=== PATIENT | male | born 1970 | race American Indian/Alaskan Native ===

== ENCOUNTER 2016-06-11 03:00 | Emergency (ER) | payer MEDICARE ==
[2016-06-11 03:43] LABS: Basophils % (Auto) 0.5 % (0.0-1.8); Eosinophils % (Auto) 0.5 % (0.0-4.3); Hematocrit 40.9 % (35.5-45.6); Hemoglobin 13.9 gm/dl (11.8-15.2); Mean Corpuscular HGB Conc 34 % (32-34); Mean Corpuscular Hemoglobin 32 pg (28-32); Mean Corpuscular Volume 94 fl (84-94); Platelet Count 221 K/mm3 (140-440); Red Blood Count 4.34 M/mm3 (3.65-5.03); Red Cell Distribution Width 12.2 % (13.2-15.2); White Blood Count 3.8 K/mm3 (4.5-11.0)
[2016-06-11 04:02] LABS: Anion Gap 17 mmol/L; Blood Urea Nitrogen 9 mg/dL (9-20); Calcium 9.2 mg/dL (8.4-10.2); Carbon Dioxide 25 mmol/L (22-30); Chloride 98.3 mmol/L (98-107); Glucose 77 mg/dL (75-100); Potassium 4.4 mmol/L (3.6-5.0); Sodium 136 mmol/L (137-145)
--- NOTE | 2016-06-11 07:18 | Emergency Department Report ---
ED Psych HPI - General Chief Complaint: Psych Stated Complaint: SOHAIL EVAL Time Seen by Provider: 06/11/16 07:02 Source: patient Mode of arrival: Ambulatory Limitations: No Limitations - History of Present Illness Initial Comments: 46-year-old male presents to the emergency department complaining of depression and suicidal thoughts. Patient states he's been having these thoughts for a while. He reports he has a history of suicide attempt after he was first diagnosed with HIV in 1990. He states he has not been taking his medication as directed. He has been drinking alcohol and using crack cocaine. He states he is having suicidal thoughts and plans to combine Seroquel with alcohol to kill himself. There are no other complaints. MD Complaint: suicidal ideation, feels depressed -: Gradual Associated Psychiatric Symptoms: depression, suicidal ideation History of same: Yes Quality: constant Improves With: none Worsens With: none Context: recent alcohol abuse, recent drug abuse, not taking psychiatric Associated Symptoms: denies other symptoms Treatments Prior to Arrival: none If Self Harm: admits thoughts of, has plan - Related Data Home Medications Medication Instructions Recorded Confirmed Last Taken QUEtiapine [SEROquel] 200 mg PO HS 12/03/14 12/03/14 12/02/14 Previous Rx's Medication Instructions Recorded Last Taken Type RX: Triamcinolone 0.1% [Kenalog 1 applic TP TID PRN #1 tube 12/03/14 Unknown Rx 0.1% CREAM] RX: Permethrin 5% [Acticin 5% 1 applicatio TP ONCE #1 tube 12/23/14 Unknown Rx CREAM] Acetaminophen/Codeine [Tylenol #3] 1 tab PO Q6H PRN #15 tab 01/06/15 Unknown Rx RX: Clindamycin [Clindamycin CAP] 300 mg PO Q8H #28 cap 01/06/15 Unknown Rx Allergies Allergy/AdvReac Type Severity Reaction Status Date / Time No Known Allergies Allergy Verified 12/18/14 12:31 ED Review of Systems ROS: Stated complaint: SOHAIL EVAL Other details as noted in HPI Comment: All other systems reviewed and negative Psychiatric: depression, suicidal thoughts ED Past Medical Hx - Past Medical History Previous Medical History?: Yes Hx Psychiatric Treatment: Yes (DEPRESSION; MOOD DISORDER) Hx HIV: Yes (since 1990; refuses treatment) Additional medical history: Neuropathy right leg from [facility] in 1991 - Surgical History Past Surgical History?: Yes Additional Surgical History: Right hand, Right leg, Left forearm - Family History Family history: no significant - Social History Smoking Status: Current Every Day Smoker Substance Use Type: Alcohol, Cocaine, Marijuana - Medications Home Medications: Home Medications Medication Instructions Recorded Confirmed Last Taken Type QUEtiapine [SEROquel] 200 mg PO HS 12/03/14 12/03/14 12/02/14 History RX: Triamcinolone 0.1% [Kenalog 1 applic TP TID PRN #1 tube 12/03/14 Unknown Rx 0.1% CREAM] RX: Permethrin 5% [Acticin 5% 1 applicatio TP ONCE #1 tube 12/23/14 Unknown Rx CREAM] Acetaminophen/Codeine [Tylenol #3] 1 tab PO Q6H PRN #15 tab 01/06/15 Unknown Rx RX: Clindamycin [Clindamycin CAP] 300 mg PO Q8H #28 cap 01/06/15 Unknown Rx ED Physical Exam - General Limitations: No Limitations General appearance: alert, in no apparent distress - Head Head exam: Present: atraumatic, normocephalic - Eye Eye exam: Present: normal appearance, PERRL, EOMI - ENT ENT exam: Present: normal exam, normal orophraynx, mucous membranes moist - Neck Neck exam: Present: normal inspection, full ROM. Absent: tenderness - Respiratory Respiratory exam: Present: normal lung sounds bilaterally. Absent: respiratory distress - Cardiovascular Cardiovascular Exam: Present: regular rate, normal rhythm, normal heart sounds - GI/Abdominal GI/Abdominal exam: Present: soft, normal bowel sounds. Absent: distended, tenderness - Extremities Exam Extremities exam: Present: normal inspection, full ROM. Absent: tenderness - Back Exam Back exam: Present: normal inspection, full ROM. Absent: tenderness - Neurological Exam Neurological exam: Present: alert, oriented X3. Absent: motor sensory deficit - Psychiatric Psychiatric exam: Present: depressed, flat affect, suicidal ideation - Skin Skin exam: Present: warm, dry, intact ED Course Vital Signs 06/11/16 06/11/16 06/11/16 03:09 04:06 07:20 Temperature 97.4 F L 97 F L 98.2 F Pulse Rate 67 69 74 Respiratory 18 18 18 Rate Blood Pressure 106/74 Blood Pressure 113/74 117/78 [Right] O2 Sat by Pulse 96 97 96 Oximetry 04/12/17 07:22 Temperature 98 F Pulse Rate 87 Respiratory 18 Rate Blood Pressure Blood Pressure 124/76 [Right] O2 Sat by Pulse 96 Oximetry - Reevaluation(s) Reevaluation #1: 06/11/16 10:42 Form 1013 has been signed and placed on the patient's chart. Patient has been medically cleared and is awaiting mental health evaluation for placement. ED Medical Decision Making - Lab Data Result diagrams: 06/11/16 03:32 06/11/16 03:32 - Differential Diagnosis depression, suicidal ideation, polysubstance abuse Critical care attestation.: If time is entered above; I have spent that time in minutes in the direct care of this critically ill patient, excluding procedure time. ED Disposition Clinical Impression: Suicidal ideation Major depression Qualifiers: Major depression recurrence: recurrent Active/Remission status: currently active Major depression episode severity: severe Psychotic features: without psychotic features Qualified Code(s): F33.2 - Major depressive disorder, recurrent severe without psychotic features Disposition: DC/TX PSY HOSP/PSY UNIT Is pt being admited?: No Condition: Stable Referrals: PRIMARY CARE, [Primary Care Provider] - 3-5 Days Time of Disposition: 10:43
[2016-06-11 07:36] LABS: Alanine Aminotransferase 26 units/L (7-56); Albumin 4.5 g/dL (3.9-5); Albumin/Globulin Ratio 0.9 %; Alkaline Phosphatase 101 units/L (35-129); Bilirubin,Total 0.4 mg/dL (0.1-1.2); Total Protein 9.3 g/dL (6.3-8.2)
[2016-06-11 07:37] LABS: Bilirubin,Direct < 0.2 mg/dL (0-0.2)
[2016-06-11 07:52] LABS: Urine Drugs of Abuse Note Disclamer
[2016-06-11 08:12] LABS: Bacteria,Urine 1+ /HPF (Negative); Bilirubin,Urine NEG (Negative); Blood,Urine NEG (Negative); Ketones,Urine NEG (Negative); Leukocyte Esterase,Urine NEG (Negative); Mucus,Urine FEW /HPF; Nitrite,Urine NEG (Negative); Protein,Urine <15 mg/dL mg/dL (Negative); Urobilinogen,Urine < 2.0 mg/dL (<2.0)
[2016-06-11 18:50] VITALS: BP 121/79
--- NOTE | 2016-06-11 18:52 | Consultation ---
History of Present Illness - Reason for Consult Consult date: 06/11/16 Reason for consult: psychiatric evaluation - Chief Complaint Chief complaint: "I'm tired of going through these emotional battles" Mr. Marsh is a 46 year old black male who presented to the ER for help with SI and hopeless as well as daily cocaine use and alcohol use. Last use was one day ago. Current symptoms include isolation, hopelessness, lack of motivation to care for himself. AH telling him he is worthless, paranoia people will harm him , trouble sleeping and eating. One year ago, he stopped taking HIV medications and medication for depression (cymbalta). Reports being previously diagnosed with bipolar disorder and was on Seroquel. He overdosed on it twice. He states he wants to "clean myself up." He is agreeable to treatment and wants to know the status of his HIV. He believes he has AIDS. Medications and Allergies Allergies Allergy/AdvReac Type Severity Reaction Status Date / Time No Known Allergies Allergy Verified 12/18/14 12:31 Past psychiatric history - Past Medical History Past Medical History: HIV/AIDS, other (thrush, neuropathy) - past Psychiatric treatment and history Psych: Addictions, Bipolar, Depression psychiatric treatment history: [facility] 2014-stayed abstinent for 18 months SAs: Overdose on SEroquel 300m in 2013 Overdose on Seroquel 200m in 2011 Stabbed self in chest several times in 1990 after found out he had HIV: required resuscitation family history father was alcoholic - Social History Social history: alcohol abuse, IV drug use (denies), other (staying in a home where there is drug use. He has gone to senior living twice for possession of cocaine) Mental Status Exam - Vital signs Last Vital Signs Temp 98.1 F 06/11/16 18:50 Pulse 76 06/11/16 18:50 Resp 18 06/11/16 18:50 BP 121/79 06/11/16 18:50 Pulse Ox 97 06/11/16 18:50 - Exam Narrative exam: suicidal ideation hopelessness, severe, constant anhedonia amotivation anergia AH telling him he is worthless Paranoia people are going to harm him Isolation Trouble going to sleep Decrease in appetite Orientation: time, place, person Affect: depressed Mood: congruent with affect Thought content: paranoia Thought Process: Intact Perceptions: auditory, hallucinations Speech: normal rate and pattern Concentration: focused Motor activity: other (uses walker. reports neuropathy causes difficulty ambulating) Level of consciousness: alert Memory: Intact Sleep Symptoms: Difficulty Falling Asleep Appetite: decreased Interaction: cooperative, pleasant Results Result Diagrams: 06/11/16 03:32 06/11/16 03:32 Abnormal lab results 06/11/16 06/11/16 06/11/16 Range/Units 03:32 03:32 03:32 WBC 3.8 L (4.5-11.0) K/mm3 RDW 12.2 L (13.2-15.2) % [place]rentiss % (Auto) 9.0 H (0.0-7.3) % Lymph # 0.9 L (1.2-5.4) K/mm3 Sodium 136 L (137-145) mmol/L Total Creatine Kinase (55-170) units/L Total Protein (6.3-8.2) g/dL Salicylates (2.8-20.0) mg/dL Plasma/Serum Alcohol 0.13 H (0-0.07) gm% 06/11/16 06/11/16 06/11/16 Range/Units 05:03 05:03 05:04 WBC (4.5-11.0) K/mm3 RDW (13.2-15.2) % Prentiss % (Auto) (0.0-7.3) % Lymph # (1.2-5.4) K/mm3 Sodium (137-145) mmol/L Total Creatine Kinase 356 H (55-170) units/L Total Protein 9.3 H (6.3-8.2) g/dL Salicylates < 0.3 L (2.8-20.0) mg/dL Plasma/Serum Alcohol (0-0.07) gm% All other labs normal. Assessment and Plan Assessment and plan: Impression: 46 year old black male with significant psychosocial stressors and chronic health condition which have contributed to a worsening of depressive symptoms. He currently has suicidal ideation and wants help for depression and substance abuse. Bipolar disorder (describes history of manic episodes), currently depressed, severe, with psychotic features Cocaine use disorder, severe alcohol use disorder-no withdrawal currently Plan: Patient requests blood tests for viral load and T cell count since he has not had one in a year, per his report He is concerned he has AIDS and wants to know He would like to restart his HIV medications 1013 and transfer to psychiatric facility [facility] protocol for alcohol use disorder Start Gabapentin 300mg tid for mood and this will help with neuropathy symptoms as well - Psychiatric problem (1) Bipolar disorder current episode depressed Status: Acute Qualifiers: Current episode severity: C Psychotic features: P (2) Cocaine use disorder, severe, dependence Status: Acute (3) Alcohol use disorder Status: Acute
[2016-06-11] MEDS ORDERED: NEURONTIN PO SCH (20:00)
== END 2016-06-11 18:51 ==
LOC: ED 03:00
DX: R45.851 Suicidal ideations (principal); F33.2 Major depressive disorder, recurrent severe without psychotic features; F39 Unspecified mood [affective] disorder; F17.200 Nicotine dependence, unspecified, uncomplicated; F12.90 Cannabis use, unspecified, uncomplicated; F14.90 Cocaine use, unspecified, uncomplicated
CPT/HCPCS: 36415; 80048; 80074; 80307; 81001; 82550; 85025; 99285; G0480; 80320

== ENCOUNTER 2019-01-14 09:31 | Emergency (ER) | payer MEDICARE ==
--- NOTE | 2019-01-14 10:00 | Emergency Department Report ---
ED Psych HPI - General Chief Complaint: Psych Stated Complaint: SUICIDAL MH EVAL Time Seen by Provider: 01/14/19 10:00 Source: patient Mode of arrival: Wheelchair - History of Present Illness Initial Comments: 48 yo AA male comes to ER with SI and plan to "OD" Denies HI. Endorses auditory hallucinations to harm self. Pressured speech. Denies recent drug use. Walks with cane but it is not clear to me why- he states "I just do." PMH schizo affective HIV neuropathy [facility] in past Rx can not tell me the names He uses [facility] - he asked with call them. He states he is taking meds but I suspect based on SI he is not. Will ask nurse to obtain meds. NOK sister parents Complaint: suicidal ideation -: Gradual Associated Psychiatric Symptoms: depression, suicidal ideation History of same: Yes Quality: constant Improves With: none Worsens With: none Context: recent alcohol abuse, recent drug abuse Associated Symptoms: denies other symptoms Treatments Prior to Arrival: none If Self Harm: admits thoughts of, has plan - Related Data Allergies Allergy/AdvReac Type Severity Reaction Status Date / Time No Known Allergies Allergy Verified 12/18/14 12:31 ED Review of Systems ROS: Stated complaint: SUICIDAL MH EVAL Other details as noted in HPI Comment: All other systems reviewed and negative ED Past Medical Hx - Past Medical History Previous Medical History?: Yes Hx Psychiatric Treatment: Yes (DEPRESSION; MOOD DISORDER) Hx HIV: Yes (since 1990; refuses treatment) Additional medical history: Neuropathy right leg from [facility] in 1991 - Surgical History Past Surgical History?: Yes Additional Surgical History: Right hand, Right leg, Left forearm - Family History Family history: no significant - Social History Smoking Status: Current Every Day Smoker Substance Use Type: Alcohol, Marijuana ED Physical Exam - General Limitations: No Limitations General appearance: alert, in no apparent distress - Head Head exam: Present: atraumatic, normocephalic - Eye Eye exam: Present: normal appearance - ENT ENT exam: Present: mucous membranes moist - Neck Neck exam: Present: normal inspection - Respiratory Respiratory exam: Present: normal lung sounds bilaterally. Absent: respiratory distress - Cardiovascular Cardiovascular Exam: Present: regular rate, normal rhythm. Absent: systolic murmur, diastolic murmur, rubs, gallop - GI/Abdominal GI/Abdominal exam: Present: soft, normal bowel sounds - Rectal Rectal exam: Present: deferred - Extremities Exam Extremities exam: Present: normal inspection - Back Exam Back exam: Present: normal inspection - Neurological Exam Neurological exam: Present: alert, oriented X3 - Psychiatric Psychiatric exam: Present: anxious, suicidal ideation - Skin Skin exam: Present: warm, dry, intact, normal color. Absent: rash ED Medical Decision Making - Lab Data Result diagrams: 01/14/19 10:20 01/14/19 10:20 - Medical Decision Making 1013 for safety plan medically clear MHE dispo per [facility]HE Labs 01/14/19 01/14/19 01/14/19 10:20 10:20 10:20 WBC 12.0 H RBC 3.94 Hgb 12.5 Hct 37.5 MCV 95 H MCH 32 MCHC 33 RDW 13.3 Plt Count 354 Seg Neutrophils % Pharmacy Benefits Coordinator Sodium 130 L Potassium 4.0 Chloride 92.4 L Carbon Dioxide 17 L Anion Gap 25 BUN 5 L Creatinine 0.6 L Estimated GFR > 60 BUN/Creatinine Ratio 8 Glucose 66 L Calcium 9.6 Total Bilirubin 0.20 AST 30 ALT 15 Alkaline Phosphatase 112 Total Protein 8.2 Albumin 4.3 Albumin/Globulin Ratio 1.1 Urine Color Urine Turbidity Urine pH Ur Specific [place] Urine Protein Urine Glucose (UA) Urine Ketones Urine Blood Urine Nitrite Urine Bilirubin Urine Urobilinogen Ur Leukocyte Esterase Urine WBC (Auto) Urine RBC (Auto) Urine Mucus Salicylates < 0.3 L Urine Opiates Screen Urine Methadone Screen Acetaminophen Ur Barbiturates Screen Ur Phencyclidine Scrn Ur Amphetamines Screen U Benzodiazepines Scrn Urine Cocaine Screen U Marijuana (THC) Screen Drugs of Abuse Note Plasma/Serum Alcohol 01/14/19 01/14/19 01/14/19 10:20 10:20 Unknown WBC RBC Hgb Hct MCV MCH MCHC RDW Plt Count Seg Neutrophils % Sodium Potassium Chloride Carbon Dioxide Anion Gap BUN Creatinine Estimated GFR BUN/Creatinine Ratio Glucose Calcium Total Bilirubin AST ALT Alkaline Phosphatase Total Protein Albumin Albumin/Globulin Ratio Urine Color Yellow Urine Turbidity Clear Urine pH 5.0 Ur Specific [place] 1.014 Urine Protein <15 mg/dl Urine Glucose (UA) Neg Urine Ketones Neg Urine Blood Neg Urine Nitrite Neg Urine Bilirubin Neg Urine Urobilinogen < 2.0 Ur Leukocyte Esterase Neg Urine WBC (Auto) 1.0 Urine RBC (Auto) 1.0 Urine Mucus Few Salicylates Urine Opiates Screen Urine Methadone Screen Acetaminophen < 5.0 L Ur Barbiturates Screen Ur Phencyclidine Scrn Ur Amphetamines Screen U Benzodiazepines Scrn Urine Cocaine Screen U Marijuana (THC) Screen Drugs of Abuse Note Plasma/Serum Alcohol < 0.01 01/14/19 Unknown WBC RBC Hgb Hct MCV MCH MCHC RDW Plt Count Seg Neutrophils % Sodium Potassium Chloride Carbon Dioxide Anion Gap BUN Creatinine Estimated GFR BUN/Creatinine Ratio Glucose Calcium Total Bilirubin AST ALT Alkaline Phosphatase Total Protein Albumin Albumin/Globulin Ratio Urine Color Urine Turbidity Urine pH Ur Specific [place] Urine Protein Urine Glucose (UA) Urine Ketones Urine Blood Urine Nitrite Urine Bilirubin Urine Urobilinogen Ur Leukocyte Esterase Urine WBC (Auto) Urine RBC (Auto) Urine Mucus Salicylates Urine Opiates Screen Presumptive negative Urine Methadone Screen Presumptive negative Acetaminophen Ur Barbiturates Screen Presumptive negative Ur Phencyclidine Scrn Presumptive negative Ur Amphetamines Screen Presumptive negative U Benzodiazepines Scrn Presumptive negative Urine Cocaine Screen Presumptive negative U Marijuana (THC) Screen Presumptive positive Drugs of Abuse Note Disclamer Plasma/Serum Alcohol LABS NOTED MEDICALLY CLEARED AT 1115 FOR MHE DISPO PER MHE - Differential Diagnosis mhe Critical care attestation.: If time is entered above; I have spent that time in minutes in the direct care of this critically ill patient, excluding procedure time. ED Disposition Clinical Impression: Suicidal ideation, Tetrahydrocannabinol (THC) use disorder, mild, abuse Disposition: DC/TX-65 PSY HOSP/PSY UNIT Is pt being admited?: No Does the pt Need Aspirin: No Condition: Stable Time of Disposition: 11:31
[2019-01-14 10:24] LABS: Bilirubin,Urine NEG (Negative); Blood,Urine NEG (Negative); Color,Urine Yellow (Yellow); Mucus,Urine FEW /HPF; Protein,Urine <15 mg/dL mg/dL (Negative); Urobilinogen,Urine < 2.0 mg/dL (<2.0)
[2019-01-14 10:32] LABS: Amphetamine Screen,Urine PRESUMPTIVE NEGATIVE; Benzodiazepines Screen,Urine PRESUMPTIVE NEGATIVE; Cocaine Screen,Urine PRESUMPTIVE NEGATIVE; Methadone Screen,Urine PRESUMPTIVE NEGATIVE; Opiate Screen,Urine PRESUMPTIVE NEGATIVE
[2019-01-14 10:46] LABS: Cannabinoid Screen,Urine PRESUMPTIVE POSITIVE
[2019-01-14 11:00] LABS: Hematocrit 37.5 % (35.5-45.6); Hemoglobin 12.5 gm/dl (11.8-15.2); Mean Corpuscular HGB Conc 33 % (32-34); Mean Corpuscular Volume 95 fl (84-94); Platelet Count 354 K/mm3 (140-440); Red Blood Count 3.94 M/mm3 (3.65-5.03); Red Cell Distribution Width 13.3 % (13.2-15.2)
[2019-01-14 11:23] LABS: Alanine Aminotransferase 15 units/L (7-56); Albumin 4.3 g/dL (3.9-5); BUN/Creatinine Ratio 8; Blood Urea Nitrogen 5 mg/dL (9-20); Calcium 9.6 mg/dL (8.4-10.2); Hemolysis Index 3
[2019-01-14 11:47] LABS: Band Neutrophils # (Manual) 0.1 K/mm3; Basophils % (Manual) 0 % (0.0-1.8); Eosinophils % (Manual) 0 % (0.0-4.3); RBC Morphology Normal; Total Cells Counted 100
[2019-01-14 11:48] LABS: Platelet Estimate Consistent w Auto
[2019-01-14 20:34] VITALS: BP 121/66
== END 2019-01-14 22:03 ==
LOC: ED 09:31
DX: F12.159 Cannabis abuse with psychotic disorder, unspecified (principal); F25.9 Schizoaffective disorder, unspecified; F32.9 Major depressive disorder, single episode, unspecified; F17.200 Nicotine dependence, unspecified, uncomplicated; F12.10 Cannabis abuse, uncomplicated; Z21 Asymptomatic human immunodeficiency virus [HIV] infection status
CPT/HCPCS: 36415; 80053; 80307; 80320; 81001; 85007; 85025; 99285; G0480

== ENCOUNTER 2019-01-24 09:51 | Emergency (ER) | payer MEDICARE ==
--- NOTE | 2019-01-24 12:37 | Emergency Department Report ---
ED Psych HPI - General Chief Complaint: Psych Stated Complaint: WEAKNESS/OUTSIDE FOR 3 DAYS/HUNGRY COLD Source: patient, EMS Mode of arrival: Wheelchair - History of Present Illness Initial Comments: c/o suicidal ideation and depression MD Complaint: suicidal ideation -: Sudden Associated Psychiatric Symptoms: depression, suicidal ideation History of same: Yes (He report suicide attempt in 1990) Quality: constant Improves With: none Worsens With: none Context: other (left custodial on the streets for 3 days) Associated Symptoms: denies other symptoms If Self Harm: admits thoughts of, has plan (states he would stab himself with a scissor) - Related Data Allergies Allergy/AdvReac Type Severity Reaction Status Date / Time No Known Allergies Allergy Verified 12/18/14 12:31 ED Review of Systems ROS: Stated complaint: WEAKNESS/OUTSIDE FOR 3 DAYS/HUNGRY COLD Other details as noted in HPI Comment: All other systems reviewed and negative Psychiatric: depression, suicidal thoughts ED Past Medical Hx - Past Medical History Hx Psychiatric Treatment: Yes (DEPRESSION; MOOD DISORDER) Hx HIV: Yes (since 1990; refuses treatment) Additional medical history: Neuropathy right leg from [facility] in 1991 - Surgical History Additional Surgical History: Right hand, Right leg, Left forearm - Social History Smoking Status: Current Every Day Smoker Substance Use Type: Alcohol, Cocaine, Marijuana ED Physical Exam - General Limitations: Other General appearance: alert, in no apparent distress - Head Head exam: Present: atraumatic - Eye Eye exam: Present: normal appearance. Absent: scleral icterus, conjunctival injection - ENT ENT exam: Present: mucous membranes moist - Neck Neck exam: Present: normal inspection - Respiratory Respiratory exam: Present: normal lung sounds bilaterally. Absent: respiratory distress - Cardiovascular Cardiovascular Exam: Present: regular rate, normal rhythm - GI/Abdominal GI/Abdominal exam: Present: soft, normal bowel sounds. Absent: distended, tenderness, guarding - Rectal Rectal exam: Present: deferred - Extremities Exam Extremities exam: Present: normal inspection, full ROM. Absent: pedal edema, joint swelling - Back Exam Back exam: Present: normal inspection - Neurological Exam Neurological exam: Present: alert, oriented X3 - Psychiatric Psychiatric exam: Present: depressed, suicidal ideation - Skin Skin exam: Present: warm, dry, intact ED Course Vital Signs 01/24/19 01/24/19 10:16 18:48 Temperature 97.6 F Pulse Rate 55 L 73 Respiratory 19 18 Rate Blood Pressure 143/98 Blood Pressure 114/61 [Right] O2 Sat by Pulse 99 98 Oximetry ED Medical Decision Making - Lab Data Result diagrams: 01/24/19 12:55 01/24/19 12:55 - Medical Decision Making This is a 48-year-old -[place] male. He was brought in after being on the streets for 3 days. He normally resides in a custodial facility but he left the facility for unknown reason. He is now reporting feeling depressed and having suicidal ideation. He states that he feels the same way he felt in 1990 when he was first diagnosed with HIV. He states the plan of stabbing himself with scissors. He has a past medical history of depression disorder and HIV. Pt evaluated by [facility] and is cleared to return to [facility] Critical care attestation.: If time is entered above; I have spent that time in minutes in the direct care of this critically ill patient, excluding procedure time. ED Disposition Clinical Impression: Mood disorder Disposition: DC-01 TO HOME OR SELFCARE Is pt being admited?: No Does the pt Need Aspirin: No Condition: Stable Instructions: Mood Disorders (ED) Additional Instructions: Continue with all previous home medications. Follow up with your doctor and [facility] health provider. Rest increase oral hydration Referrals: RAY YUNG MD [Primary Care Provider] - 3-5 Days Time of Disposition: 17:00
[2019-01-24 13:17] LABS: Hematocrit 38.8 % (35.5-45.6); Hemoglobin 13.1 gm/dl (11.8-15.2); Mean Corpuscular HGB Conc 34 % (32-34); Mean Corpuscular Volume 94 fl (84-94); Platelet Count 332 K/mm3 (140-440); Red Blood Count 4.13 M/mm3 (3.65-5.03); Red Cell Distribution Width 13.4 % (13.2-15.2)
[2019-01-24 13:41] LABS: Alanine Aminotransferase 26 units/L (7-56); Albumin 4.1 g/dL (3.9-5); BUN/Creatinine Ratio 22; Blood Urea Nitrogen 13 mg/dL (9-20); Calcium 9.4 mg/dL (8.4-10.2); Hemolysis Index 3
[2019-01-24 13:54] LABS: Basophils % (Manual) 0 % (0.0-1.8); Eosinophils % (Manual) 0 % (0.0-4.3); Monocytes % (Manual) 0 % (0.0-7.3); Total Cells Counted 100
[2019-01-24 13:55] LABS: Large Platelets Rare; Platelet Estimate Consistent w Auto; RBC Morphology Normal
[2019-01-24 18:49] VITALS: BP 114/61
== END 2019-01-24 19:30 | disposition home or self-care (01) ==
LOC: ED 09:51
DX: F39 Unspecified mood [affective] disorder (principal); F32.9 Major depressive disorder, single episode, unspecified; F17.200 Nicotine dependence, unspecified, uncomplicated; F14.10 Cocaine abuse, uncomplicated; F12.10 Cannabis abuse, uncomplicated
CPT/HCPCS: 36415; 80053; 80320; 85007; 85025; G0480

== ENCOUNTER 2019-03-12 23:05 | Emergency (ER) | payer MEDICARE ==
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
[2019-03-13 00:19] LABS: Hematocrit 33.8 % (35.5-45.6); Hemoglobin 11.4 gm/dl (11.8-15.2); Mean Corpuscular HGB Conc 34 % (32-34); Mean Corpuscular Volume 93 fl (84-94); Platelet Count 243 K/mm3 (140-440); Red Blood Count 3.66 M/mm3 (3.65-5.03); Red Cell Distribution Width 14.1 % (13.2-15.2)
[2019-03-13 00:39] LABS: Alanine Aminotransferase 14 units/L (7-56); Albumin 4.1 g/dL (3.9-5); BUN/Creatinine Ratio 7; Blood Urea Nitrogen 6 mg/dL (9-20); Calcium 9.2 mg/dL (8.4-10.2); Hemolysis Index 15
[2019-03-13 01:07] LABS: Amphetamine Screen,Urine PRESUMPTIVE NEGATIVE; Benzodiazepines Screen,Urine PRESUMPTIVE NEGATIVE; Cannabinoid Screen,Urine PRESUMPTIVE NEGATIVE; Methadone Screen,Urine PRESUMPTIVE NEGATIVE; Opiate Screen,Urine PRESUMPTIVE NEGATIVE
[2019-03-13 01:15] LABS: Bacteria,Urine 1+ /HPF (Negative); Bilirubin,Urine NEG (Negative); Blood,Urine NEG (Negative); Color,Urine Colorless (Yellow); Mucus,Urine FEW /HPF; Protein,Urine <15 mg/dL mg/dL (Negative); Urobilinogen,Urine < 2.0 mg/dL (<2.0); WBC,Urine < 1.0 /HPF (0.0-6.0)
[2019-03-13 01:29] LABS: Cocaine Screen,Urine PRESUMPTIVE POSITIVE
[2019-03-13 02:50] LABS: Band Neutrophils # (Manual) 0.2 K/mm3; Basophils % (Manual) 0 % (0.0-1.8); Total Cells Counted 100
[2019-03-13 02:51] LABS: RBC Morphology Normal
[2019-03-13 02:52] LABS: Platelet Estimate Consistent w Auto
[2019-03-13] MEDS ORDERED: QUEtiapine 200 MG TAB PO SCH (22:00)
[2019-03-14 08:44] VITALS: BP 106/61
--- NOTE | 2019-03-14 10:03 | Emergency Department Report ---
Blank Doc - Documentation Documentation: Pt seen and evaluated by mental health reconditioner. Does not meet inpatient crit paige. I spoke w/ pt, he is currently denying SI/HI. Will rescind 1013 and discharge. Case management has been consulted.
== END 2019-03-14 10:30 | disposition home or self-care (01) ==
LOC: ED 23:05
DX: R45.851 Suicidal ideations (principal); F14.10 Cocaine abuse, uncomplicated; F32.9 Major depressive disorder, single episode, unspecified; Z21 Asymptomatic human immunodeficiency virus [HIV] infection status; F17.200 Nicotine dependence, unspecified, uncomplicated; Z98.890 Other specified postprocedural states; Z79.899 Other long term (current) drug therapy
CPT/HCPCS: 36415; 80053; 80307; 80320; 81001; 85007; 85025; G0480

== ENCOUNTER 2020-06-09 09:42 | Emergency (ER) | payer MEDICARE ==
[2020-06-09 10:18] VITALS: BP 120/81
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
--- NOTE | 2020-06-09 11:02 | XRay Report ---
PELVIS ONE VIEW INDICATION / CLINICAL INFORMATION: Pelvic pain after fall. COMPARISON: None available. FINDINGS: BONES and JOINT(S): No acute fracture or subluxation. Fusion of the left SI joint appears unremarkabl e. There is mild lower lumbar spondylosis. No other significant arthritis. SOFT TISSUES: No significant abnormality. ADDITIONAL FINDINGS: None. IMPRESSION: 1. No acute findings. Signer Name: Abisai Singleton MD Signed: 06/09/2020 10:57 AM Workstation Name: [id number]
--- NOTE | 2020-06-09 11:04 | XRay Report ---
BILATERAL RIBS 5 VIEWS INDICATION: Right rib pain after fall. COMPARISON: None available. FINDINGS: RIBS: No acute, displaced fracture or other acute abnormality. CHEST: No acute findings. No pneumothorax. ADDITIONAL FINDINGS: No additional significant findings. IMPRESSION: 1. No acute abnormality. Signer Name: Abisai Singleton MD Signed: 06/09/2020 10:59 AM Workstation Name: [id number]
--- NOTE | 2020-06-09 12:21 | Cat Scan Report ---
CT HEAD WITHOUT CONTRAST INDICATION: pain, fall TECHNIQUE: All CT scans at this location are performed using CT dose reduction for ALARA by means of automated exposure control. COMPARISON: None available. FINDINGS: BRAIN: No hemorrhage or mass effect are seen. No evidence of acute infarction is noted. ORBITS: Normal as visualized. SOFT TISSUES OF HEAD: Normal. CALVARIUM: Normal. VISUALIZED PARANASAL SINUSES AND MASTOID AIR CELLS: Clear. ADDITIONAL FINDINGS: None. IMPRESSION: No acute intracranial abnormality. Signer Name: Joe Anders MD Signed: 06/09/2020 12:17 PM Workstation Name: [id number]
== END 2020-06-09 12:49 | disposition home or self-care (01) ==
LOC: ED 09:42
DX: S09.90XA Unspecified injury of head, initial encounter (principal); R10.2 Pelvic and perineal pain; F32.9 Major depressive disorder, single episode, unspecified; F17.200 Nicotine dependence, unspecified, uncomplicated; F14.10 Cocaine abuse, uncomplicated; Z21 Asymptomatic human immunodeficiency virus [HIV] infection status; Z98.890 Other specified postprocedural states; Z79.899 Other long term (current) drug therapy; W19.XXXA Unspecified fall, initial encounter; Y93.89 Activity, other specified; Y92.89 Other specified places as the place of occurrence of the external cause; Y99.8 Other external cause status
CPT/HCPCS: 70450; 72170

== ENCOUNTER 2020-06-23 01:26 | Emergency (ER) | payer MEDICARE ==
[2020-06-23] MEDS ORDERED: ASPIRIN 325 MG TAB PO ONE (02:33)
--- NOTE | 2020-06-23 02:40 | Event Note ---
ED Screening Note Date of service: 06/23/20 Time: 02:34 ED Screening Note: Patient is a 50 yo AA male with a h/o HIV and noncompliant with medications, bipolar disorder, paranoid schizophrenia, anxiety and depression, chronic alcohol and poly-substance abuse who presents to the ED with c/o worsening dyspnea, generalized weakness, frequent falls due to fatgue and weakness, multiple lesions on his rectum and buttocks and swollen painful rash on his chin for the last 2 weeks, worse in the last 2 days. Patient also c/o diarrhea for the last 1 week. Patient states that the dyspnea is worsened by exertion and that he is unable to walk due to weakness and dyspnea. Patient denies dizziness, syncope, fever, chills, dysuria, hematuria, chest pain, back pain, traumatic injury or abdominal pain, nausea, vomiting and headache or seizures This initial assessment/diagnostic orders/clinical plan/treatment(s) is/are subject to change based on patients health status, clinical progression and re- assessment by fellow clinical providers in the ED. Further treatment and workup at subsequent clinical providers discretion. Patient/guardian urged not to elope from the ED as their condition may be serious if not clinically assessed and managed. Initial orders include: CBC, CMP, EKG, CXR, UA, Troponin
[2020-06-23 03:15] LABS: Basophils % (Auto) 0.6 % (0.0-1.8); Eosinophils % (Auto) 1.1 % (0.0-4.3); Hematocrit 35.3 % (35.5-45.6); Hemoglobin 12.1 gm/dl (11.8-15.2); Lymphocytes # (Auto) 0.7 K/mm3 (1.2-5.4); Lymphocytes % (Auto) 24.4 % (13.4-35.0); Mean Corpuscular HGB Conc 34 % (32-34); Mean Corpuscular Volume 95 fl (84-94); Monocytes # (Auto) 0.2 K/mm3 (0.0-0.8); Monocytes % (Auto) 9.2 % (0.0-7.3); Platelet Count 251 K/mm3 (140-440); Red Cell Distribution Width 13.4 % (13.2-15.2)
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
[2020-06-23 03:33] LABS: Alanine Aminotransferase 23 units/L (7-56); Albumin 3.9 g/dL (3.9-5); BUN/Creatinine Ratio 7; Blood Urea Nitrogen 6 mg/dL (9-20); Calcium 9.1 mg/dL (8.4-10.2); Hemolysis Index 0
[2020-06-23 08:08] VITALS: BP 141/85
--- NOTE | 2020-06-25 10:35 | Electrocardiograph Report ---
[facility] Test Date: 2020-06-23 Test Time: 02:41:46 Pat Name: MITALI JACKSON Department: Room: Gender: M Supervisor [employer]: SARI : 1970 Requested By: CHANEL BUENO Order Number: [id number] Reading MD: Shiva Mcwilliams Measurements Intervals [place] Rate: 71 P: 69 IA: 156 QRS: 77 QRSD: 97 T: 49 QT: 399 QTc: 435 Interpretive Statements Sinus rhythm Consider left ventricular hypertrophy No previous ECG available for comparison Electronically Signed On 06-25-2020 10:35:31 EDT by Shiva Mcwilliams
== END 2020-06-23 13:40 | disposition left against medical advice (07) ==
LOC: ED 01:26
DX: R06.00 Dyspnea, unspecified (principal); R53.1 Weakness; Z53.21 Procedure and treatment not carried out due to patient leaving prior to being seen by health care provider
CPT/HCPCS: 36415; 71045; 80053; 83880; 84484; 85025; 93005

== ENCOUNTER 2020-06-24 00:26 | Emergency (ER) | payer MEDICARE ==
[2020-06-24 01:54] VITALS: BP 124/78
[2020-06-24] MEDS ORDERED: LIDOCAINE (1%) 10 MG/1 ML VIAL 20 ML MDV INFILTRATI ONE (04:07)
[2020-06-24] MEDS ORDERED: traMADol 50 MG TAB PO ONE (04:07)
[2020-06-24] MEDS ORDERED: SULFAMETHOXAZOLE/TRIMETHOPRIM 800/160MG DS TAB PO ONE (04:07)
[2020-06-24] MEDS ORDERED: IBUPROFEN 600 MG TAB PO ONE (04:07)
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
== END 2020-06-24 05:45 | disposition home or self-care (01) ==
LOC: ED 00:26
DX: L03.211 Cellulitis of face (principal); L73.9 Follicular disorder, unspecified; F32.9 Major depressive disorder, single episode, unspecified; Z21 Asymptomatic human immunodeficiency virus [HIV] infection status; Z98.890 Other specified postprocedural states; Z79.1 Long term (current) use of non-steroidal anti-inflammatories (NSAID); Z79.899 Other long term (current) drug therapy; Z91.018 Allergy to other foods
CPT/HCPCS: 99282

== ENCOUNTER 2020-07-04 09:20 | Emergency (ER) | payer MEDICARE ==
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
== END 2020-07-04 18:00 | disposition left against medical advice (07) ==
LOC: ED 09:20

== ENCOUNTER 2021-07-15 21:55 | Emergency (ER) | payer MEDICARE ==
[2021-07-15 22:05] VITALS: BP 134/84
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
== END 2021-07-16 10:01 | disposition home or self-care (01) ==
LOC: ED 21:55
DX: M54.2 Cervicalgia (principal); F32.A Depression, unspecified; Z21 Asymptomatic human immunodeficiency virus [HIV] infection status; Z91.02 Food additives allergy status; Z79.899 Other long term (current) drug therapy
CPT/HCPCS: 99283

== ENCOUNTER 2021-11-03 11:24 | Emergency (ER) | payer MEDICARE ==
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
--- NOTE | 2021-11-03 20:41 | XRay Report ---
CHEST 1 VIEW 11/03/2021 8:15 PM INDICATION / CLINICAL INFORMATION: bilateral leg edema and pain. COMPARISON: 06/23/20 FINDINGS: SUPPORT DEVICES: None. HEART / MEDIASTINUM: No significant abnormality. LUNGS / PLEURA: No significant pulmonary or pleural abnormality. No pneumothorax. ADDITIONAL FINDINGS: Old, healed left clavicle fracture is unchanged. IMPRESSION: 1. No acute findings. Signer Name: Ann Zamora MD Signed: 11/03/2021 8:37 PM Workstation Name: [id number]
[2021-11-03 20:55] LABS: Basophils % (Auto) 0.3 % (0.0-1.8); Eosinophils # (Auto) 0.1 K/mm3 (0.0-0.4); Eosinophils % (Auto) 1.4 % (0.0-4.3); Hematocrit 37.9 % (35.5-45.6); Hemoglobin 12.7 gm/dl (11.8-15.2); Lymphocytes # (Auto) 1.9 K/mm3 (1.2-5.4); Mean Corpuscular HGB Conc 34 % (32-34); Mean Corpuscular Volume 97 fl (84-94); Monocytes # (Auto) 0.8 K/mm3 (0.0-0.8); Monocytes % (Auto) 10.6 % (0.0-7.3); Platelet Count 394 K/mm3 (140-440); Red Blood Count 3.91 M/mm3 (3.65-5.03); Red Cell Distribution Width 14.5 % (13.2-15.2)
[2021-11-03 21:08] LABS: INR 0.97 (0.87-1.13)
[2021-11-03 21:09] LABS: Partial Thromboplastin Time 29.9 Sec. (24.2-36.6)
[2021-11-03 21:15] LABS: Alanine Aminotransferase 19 units/L (7-56); Albumin 4.7 g/dL (3.9-5); Blood Urea Nitrogen 8 mg/dL (9-20); Calcium 10.3 mg/dL (8.4-10.2); Hemolysis Index 3
[2021-11-03 21:16] LABS: BUN/Creatinine Ratio 11
[2021-11-03 21:26] LABS: Free T4 (Free Thyroxine) 0.92 ng/dL (0.76-1.46)
[2021-11-03 21:38] LABS: Amphetamine Screen,Urine Negative; Benzodiazepines Screen,Urine Negative; Methadone Screen,Urine Negative; Opiate Screen,Urine Negative
[2021-11-03 21:50] LABS: Bacteria,Urine 1+ /HPF (Negative); WBC,Urine < 1.0 /HPF (0.0-6.0)
[2021-11-03 21:54] LABS: Color,Urine Yellow (Yellow)
[2021-11-03 21:59] LABS: Cannabinoid Screen,Urine Positive; Cocaine Screen,Urine Positive
--- NOTE | 2021-11-03 23:38 | Vascular Lab Report ---
DUPLEX DOPPLER LOWER EXTREMITY VEINS, BILATERAL INDICATION / CLINICAL INFORMATION: leg edema, elevated ddimer. TECHNIQUE: Duplex doppler imaging was performed through the veins of both lower extremities using gila ous compression and other maneuvers. COMPARISON: None available. FINDINGS: RIGHT COMMON FEMORAL VEIN: Negative. RIGHT FEMORAL VEIN: Negative. RIGHT POPLITEAL VEIN: Negative. RIGHT CALF VEINS: Negative. LEFT COMMON FEMORAL VEIN: Negative. LEFT FEMORAL VEIN: Negative. LEFT POPLITEAL VEIN: Negative. LEFT CALF VEINS: Negative. ADDITIONAL FINDINGS: None. IMPRESSION: 1. No sonographic evidence for DVT in either lower extremity. Signer Name: Abisai Singleton MD Signed: 11/03/2021 11:34 PM Workstation Name: [id number]
[2021-11-03 23:52] VITALS: BP 126/77
== END 2021-11-04 00:14 | disposition home or self-care (01) ==
LOC: ED 11:24
DX: M79.89 Other specified soft tissue disorders (principal); F14.10 Cocaine abuse, uncomplicated; Z99.3 Dependence on wheelchair; F32.A Depression, unspecified; Z79.899 Other long term (current) drug therapy; Z91.02 Food additives allergy status
CPT/HCPCS: 36415; 71045; 80053; 80307; 80320; 81001; 83880; 84439; 84443; 85025; 85379; 85610; 85730; 93970; 99284; G0480

== ENCOUNTER 2021-11-06 06:14 | Emergency (ER) | payer MEDICARE ==
[2021-11-06 07:31] VITALS: BP 111/70
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
[2021-11-06 21:49] LABS: Alanine Aminotransferase 14 units/L (7-56); Albumin 3.9 g/dL (3.9-5); BUN/Creatinine Ratio 10; Blood Urea Nitrogen 7 mg/dL (9-20); Calcium 9.3 mg/dL (8.4-10.2); Hemolysis Index 11
--- NOTE | 2021-11-07 00:47 | Vascular Lab Report ---
DUPLEX DOPPLER LOWER EXTREMITY VEINS, BILATERAL INDICATION / CLINICAL INFORMATION: LE edema and elevated Ddimer TECHNIQUE: Duplex doppler imaging with spectral analysis was performed through the veins of both lowe r extremities using venous compression and other maneuvers. COMPARISON: None available. FINDINGS: RIGHT COMMON FEMORAL VEIN: Negative. RIGHT FEMORAL VEIN: Negative. RIGHT POPLITEAL VEIN: Negative. RIGHT CALF VEINS: Negative. LEFT COMMON FEMORAL VEIN: Negative. LEFT FEMORAL VEIN: Negative. LEFT POPLITEAL VEIN: Negative. LEFT CALF VEINS: Negative. ADDITIONAL FINDINGS: None. IMPRESSION: No sonographic evidence for DVT in either lower extremity. Signer Name: Joe Anders MD Signed: 11/07/2021 12:43 AM Workstation Name: [id number]
== END 2021-11-07 03:06 | disposition home or self-care (01) ==
LOC: ED 06:14
DX: R22.43 Localized swelling, mass and lump, lower limb, bilateral (principal); R79.1 Abnormal coagulation profile; Z91.018 Allergy to other foods
CPT/HCPCS: 36415; 80053; 85379; 93970; 99284